=== PATIENT | male | born 1995 | race African-American/Black ===

== ENCOUNTER 2017-10-03 08:31 | Emergency (ER) | payer SELFPAY ==
[2017-10-03 08:43] VITALS: BMI 29.8
--- NOTE | 2017-10-03 09:31 | PDOC ---
*Physical Exam - Vital Signs Last Vital Signs Temp Pulse Resp BP Pulse Ox 98.7 F 84 18 148/72 97 10/03/17 08:32 10/03/17 08:32 10/03/17 08:32 10/03/17 08:32 10/03/17 08:32 ED Treatment Course - LABORATORY CBC & Chemistry Diagram: 10/03/17 10:46 10/03/17 10:46 Medical Decision Making - Medical Decision Making 10/03/17 09:30 Pt seen by Midlevel Provider under my direct supervision Pt interviewed and examined Ancillary studies reviewed I agree with plan as outlined by Midlevel Provider *DC/Admit/Observation/Transfer Diagnosis at time of Disposition: Schizophrenia - Discharge Dispostion Disposition: HOME Condition at time of disposition: Good - Prescriptions Prescriptions: Divalproex Sodium [Depakote ER] 500 mg PO DAILY #30 tab.er.24h Olanzapine [Zyprexa -] 5 mg PO DAILY #30 tablet - Referrals - Patient Instructions Printed Discharge Instructions: DI for Schizophrenia Additional Instructions: [facility] [address] [place] [id number] Please take medication as prescribed daily and please follow up with referred clinic. Understand, you may return to the emergency at any given time if symptoms worsen - Post Discharge Activity
--- NOTE | 2017-10-03 10:33 | PDOC ---
History of Present Illness - General Chief Complaint: Psychiatric Stated Complaint: PERSONAL Time Seen by Provider: 10/03/17 09:12 History Source: Patient Exam Limitations: No Limitations - History of Present Illness Initial Comments: 22-year-old male with history of schizoaffective disorder since the age of 12 present to ED with complaints of racing thoughts, decreased appetite, and feeling very anxious. As per mother patient has progressively worsened in the past few days with his last manic episode occurring late last year while he was in [place] and resided there with his father for the next 3 months. As per mother prior to coming back to [place] the medication was stopped as per psychiatrist and patient has been on no medication since November. Patient denies suicidal thoughts, homicidal thoughts, or feelings of hopelessness. Patient states smokes marijuana intermittently but denies any other illicit drug or alcohol use. Timing/Duration: getting worse Severity: moderate Associated Symptoms: anxiety, impaired concentration Past History - Past Medical History Allergies/Adverse Reactions: Allergies No Known Allergies Allergy (Verified 10/03/17 08:32) Home Medications: Ambulatory Orders Divalproex *ER* [Depakote *ER* -] 500 mg PO DAILY 10/03/17 Olanzapine 5 mg PO DAILY 10/03/17 Sertraline HCl 50 mg PO DAILY 10/03/17 Psychosocial History: Yes: schizophrenia Surgical History: Yes: No Surgical History - Family History Significant Family History: Yes: no pertinent family hx - Immunization History Immunization Up to Date: Yes - Social History Smoking History: No Smoking Status: Never smoked Number of Cigarettes Per Day: 0 Alcohol Use: none Drug Use: none Patient Lives Alone: No Lives With: parents *Review of Systems - Review of Systems Able to Perform ROS?: No Constitutional: No: Symptoms Reported HEENTM: No: Symptoms Reported Respiratory: No: Symptoms reported Cardiac (ROS): No: Symptoms Reported ABD/GI: No: Symptoms Reported : No: Symptoms Reported Musculoskeletal: No: Symptoms Reported Integumentary: No: Symptoms Reported Psychiatric: Yes: Anxiety, Stressors, Change in Appetite Endocrine: No: Symptoms Reported Hematologic/Lymphatic: No: Symptoms Reported *Physical Exam - Vital Signs Last Vital Signs Temp Pulse Resp BP Pulse Ox 98.7 F 84 18 148/72 97 10/03/17 08:32 10/03/17 08:32 10/03/17 08:32 10/03/17 08:32 08/08/18 08:32 - Physical Exam General Appearance: Yes: Nourished, Appropriately Dressed. No: Apparent Distress HEENT: negative: Pale Conjunctivae Neck: positive: Supple Respiratory/Chest: positive: Lungs Clear, Normal Breath Sounds. negative: Respiratory Distress, Accessory Muscle Use Cardiovascular: positive: Regular Rhythm, Regular Rate. negative: Murmur Gastrointestinal/Abdominal: positive: Soft. negative: Tenderness Musculoskeletal: negative: CVA Tenderness Extremity: positive: Normal Capillary Refill. negative: Pedal Edema Integumentary: positive: Normal Color, Warm, Moist Neurologic: positive: Motor Strength 5/5. negative: Normal Mood/Affect (quick speech pattern, changing subject of conversation frequently, otherwise smiling, + eye contact) Plan - Progress Note Progress Note: 10/03/17 10:01 History of schizophrenia but has been functional community going to college and performing daily activities. [facility] patient has been off medication for approximately 10 months as per recommendation from a psychiatrist and [place]. Patient for the past 2 days has been more manic pacing decreased by mouth intake, and having racing thoughts. Patient upon arrival was able to contract for safety for concern for early manic episode of schizophrenia. Patient ordered for labs, EKG, urine drug toxicology and spoke to psychiatrist Dr. Thomas states will consult later this afternoon. 10/03/17 12:29 Laboratory Tests 10/03/17 10/03/17 10/03/17 10:46 10:46 11:28 WBC 4.5 Hgb 14.1 Hct 42.1 Plt Count 196 Absolute Neuts (auto) 2.2 Neutrophils % 48.1 Lymphocytes % 42.0 H Sodium 143 Potassium 4.1 Chloride 106 Carbon Dioxide 27 Anion Gap 10 BUN 17 Creatinine 1.0 Creat Clearance w eGFR > 60 Random Glucose 75 Calcium 9.5 Magnesium 2.5 H Total Bilirubin 0.8 AST 24 ALT 22 Alkaline Phosphatase 67 Urine Ketones Negative Urine Blood Negative Urine Nitrite Negative Ur Leukocyte Esterase Negative Opiates Screen Barbiturate Screen Phencyclidine Screen Ur Amphetamines Screen MDMA (Ecstasy) Screen Benzodiazepines Screen Cocaine Screen U Marijuana (THC) Screen 10/03/17 11:28 WBC Hgb Hct Plt Count Absolute Neuts (auto) Neutrophils % Lymphocytes % Sodium Potassium Chloride Carbon Dioxide Anion Gap BUN Creatinine Creat Clearance w eGFR Random Glucose Calcium Magnesium Total Bilirubin AST ALT Alkaline Phosphatase Urine Ketones Urine Blood Urine Nitrite Ur Leukocyte Esterase Opiates Screen Negative Barbiturate Screen Negative Phencyclidine Screen Negative Ur Amphetamines Screen Negative MDMA (Ecstasy) Screen Negative Benzodiazepines Screen Negative Cocaine Screen Negative U Marijuana (THC) Screen Negative Dr. Bajwa here for consultation is recommending Olanzapine, and Depakote and discharge home at the same. Patient is to follow-up with [facility]. - Order(s) Order(s): Orders Medication Instructions Recorded NK [No Known Home Medication] 10/03/17 Orders last 12 hours Category Date Time Status ELECTROCARDIOGRAM [CARD] Stat Cardiology 10/03/17 10:05 Ordered Physician Consultation Physician 1 Cons 10/03/17 10:05 Ordered CBC WITH DIFFERENTIAL Stat Lab 10/03/17 10:05 Ordered DRUG SCREEN,UR ER- [facility] Stat Lab 10/03/17 10:05 Ordered UA [URINALYSIS] Stat Lab 10/03/17 10:05 Ordered - Laboratory CBC & Chemistry Diagram: 10/03/17 10:46 10/03/17 10:46 *DC/Admit/Observation/Transfer Diagnosis at time of Disposition: Schizophrenia - Discharge Dispostion Disposition: HOME Condition at time of disposition: Good - Referrals - Patient Instructions Printed Discharge Instructions: DI for Schizophrenia Additional Instructions: [address] [place] [address] Please take medication as prescribed daily and please follow up with referred clinic. Understand, you may return to the emergency at any given time if symptoms worsen - Post Discharge Activity
[2017-10-03 11:17] LABS: BASO % 0.6 % (0-2.0); EOS % 1.1 % (0-4.5); HEMATOCRIT 42.1 % (35.4-49); HEMOGLOBIN 14.1 GM/dL (11.7-16.9); MCH 30.2 pg (25.7-33.7); MCHC 33.5 g/dl (32.0-35.9); MEAN CELL VOLUME 90.1 fl (80-96); MEAN PLT VOLUME 8.8 fl (7.5-11.1); MONO % 8.2 % (3.8-10.2); NEUT % 48.1 % (42.8-82.8); PLATELET COUNT 196 K/MM3 (134-434); RBC 4.67 M/mm3 (4.00-5.60); RDW 13.4 % (11.9-15.9); WHITE BLOOD COUNT 4.5 K/mm3 (4.0-10.0)
--- NOTE | 2017-10-03 11:38 | CON.PSY ---
Psychiatry Consult Chief Complaint: 22 year old male with a history of Bipolar Disorder came from [place], Pych meds were discontyinued, Patient had beenn on Zyprexa and depakote and zoloft. Mom rep[orts that patieny has become Hypo manic and behaving erratically. No aggression or suicidal behavior. Mother feels comfortable with him. Symptoms: reports: Impaired Concentration, Excessive Energy - Previous Psychiatric Treatment Outpatient: Less than 6 mos ago Inpatient: One prior admission - Previous Substance Abuse Treatment Outpatient: None Inpatient: None - Reason for Previous Treatment Reason for Previous Treatment: Biploar Illness - Allergies Allergies: Allergies Allergy/AdvReac Type Severity Reaction Status Date / Time No Known Allergies Allergy Verified 10/03/17 08:32 - Current Living Status Usual Living Arrangement: With Parent - Current Mental Status Evaluation Appearance: Well Groomed Attitude: Cooperative - Affect Affect: Expansive Appropriateness: Appropriate to Content - Mood Mood: Euphoric - Speech/Language Expressive: Coherent - Psychomotor Activity Psychomotor Activity: Hyperactive - Thought Process Thought Process: Circumstantial - Thought Content Hallucinations: Absent Delusions: Absent - Self Perception Self Perception: No Impairment - Cognition Attention: Alert Orientation: Time Memory, Immediate Recall: Intact Memory, Short Term: 3/3 Memory, Remote with Promptin/3 - Concentration Serial Sevens Intact: Yes Simple Calculations Intact: Yes - Abstraction Proverb Interpretation: Intact Judgement: Minimally Impaired - Insight Insight: Intact - Impulse Control Impulse Control: Minimally Impaired - Suicidal Ideation Suicidal Ideation: No - Homicidal Ideation Homicidal Ideation: No Assessment/Plan 1) Patient is not dangerous to self and others at this time. Give Zyprexa 5mg and Depakote 500mg er po Stat for Hypomania, 3) Give One Month Supply of Zyprexa 5mg po od and Depakote 500mg er . Mother will seek op care in [place].
[2017-10-03 11:43] LABS: URINE APPEARANCE CLEAR; URINE BILIRUBIN NEGATIVE (<2.0 mg/dL); URINE COLOR COLORLESS; URINE GLUCOSE (UA) NEGATIVE (NEGATIVE); URINE KETONE NEGATIVE (NEGATIVE); URINE LEUK ESTERASE NEGATIVE (NEGATIVE); URINE NITRITE NEGATIVE (NEGATIVE); URINE PROTEIN NEGATIVE (NEGATIVE); URINE UROBILINOGEN NEGATIVE mg/dL (0.2-1.0)
[2017-10-03 11:51] LABS: ALBUMIN 4.7 g/dl (3.4-5.0); ANION GAP 10 (8-16); BLOOD UREA NITROGEN 17 mg/dL (7-18); CALCIUM 9.5 mg/dL (8.5-10.1); CHLORIDE 106 mmol/L (98-107); CO2 27 mmol/L (21-32); GLUCOSE,RANDOM 75 mg/dL (74-106); MAGNESIUM 2.5 mg/dL (1.8-2.4); POTASSIUM 4.1 mmol/L (3.5-5.1); SODIUM 143 mmol/L (136-145)
[2017-10-03 11:56] LABS: ALK PHOS 67 U/L (45-117); BILIRUBIN,TOTAL 0.8 mg/dL (0.2-1.0); SGOT/AST 24 U/L (15-37); SGPT/ALT 22 U/L (12-78); TOT PROT 7.8 g/dl (6.4-8.2)
[2017-10-03 11:58] LABS: OPIATES, URI NEGATIVE ng/ml (CUTOFF=300); URINE AMPHETAMINES NEGATIVE ng/ml (CUTOFF=500)
[2017-10-03 11:59] LABS: METHADONE, UR NEGATIVE ng/ml (CUTOFF=300); PHENCYCLIDINE,URINE NEGATIVE ng/ml (CUTOFF=25)
[2017-10-03 12:10] LABS: COCAINE, UR NEGATIVE ng/ml (CUTOFF=300); URINE BARBITURATES NEGATIVE ng/ml (CUTOFF=200); URINE BENZODIAZEPINES NEGATIVE ng/ml (CUTOFF=200)
[2017-10-03] MEDS ORDERED: OLANZapine 5 MG TABLET PO ONE (12:33)
[2017-10-03] MEDS ORDERED: DIVALPROEX SODIUM 500 MG TABLET E.C. PO ONE (12:33)
[2017-10-03] MEDS ORDERED: DIVALPROEX NA *ER* EXTEND REL 500 MG TABLET.SA (FP) PO ONE (12:41)
[2017-10-03] MEDS ORDERED: DIVALPROEX SODIUM 500 MG TABLET E.C. ONE (12:45)
[2017-10-03 13:03] VITALS: BP 138/78; PULSE 72; TEMP 98.5
--- NOTE | 2017-10-04 16:49 | EKG ---
Test Reason : Blood Pressure : / mmHG Vent. Rate : 075 BPM Atrial Rate : 075 BPM P-R Int : 136 ms QRS Dur : 082 ms QT Int : 378 ms P-R-T Axes : -09 062 035 degrees QTc Int : 422 ms NORMAL SINUS RHYTHM WITH SINUS ARRHYTHMIA NORMAL ECG NO PREVIOUS ECGS AVAILABLE Confirmed by JOYCELYN CISNEROS MD ([id number]) on 10/04/2017 3:49:48 PM Referred By: Confirmed By:JOYCELYN CISNEROS MD
== END 2017-10-03 13:00 | disposition home or self-care (01) ==
LOC: JER 08:31
DX: F25.9 Schizoaffective disorder, unspecified (principal); F41.9 Anxiety disorder, unspecified; R41.840 Attention and concentration deficit
CPT/HCPCS: 36415; 80053; 80307; 81003; 83735; 85025; 93005; 93010; 99283-25